=== PATIENT | male | born 1940 | race Caucasian/White ===

== ENCOUNTER 2021-06-25 08:16 | Inpatient (IN) ==
[2021-06-25] MEDS: Carbidopa/Levodop 25/100 MG TAB PO SCH ×2 (18:03→21:52)
[2021-06-25] MEDS: Carbidopa/Levodop CR 50/200 TAB.CR PO SCH (21:53)
[2021-06-26] MEDS: Cholecalciferol (VIT D3) 400 units TAB PO SCH (08:08)
[2021-06-26] MEDS: Carbidopa/Levodop 25/100 MG TAB PO SCH ×4 (08:10→20:26)
[2021-06-26] MEDS: Carbidopa/Levodop CR 50/200 TAB.CR PO SCH ×4 (08:10→20:26)
[2021-06-26 10:19] LABS: ABS Lymphocytes 0.5 10^3/ul (1.0-4.8); ABS Monocytes 0.4 10^3/ul (0-0.8); ABS Neutrophils 6.7 10^3/ul (1.5-7.7); Eosinophil % 0.5 %; Hematocrit 22 % (42-52); Hemoglobin 7.4 g/dL (14.0-18.0); Lymphocyte % 6.4 %; Mean Corpuscular HGB Conc 34 g/dL (31-36); Mean Corpuscular Hemoglobin 31 pg (27-31); Mean Corpuscular Volume 88 fL (80-94); Mean Platelet Volume 6.8 fL (7.4-10.4); Nucleated Red Blood Cells % 0.1; Platelet Count 205 10^3/uL (150-450); Red Blood Count 2.43 10^6 /uL (4.18-5.48); Red Cell Distribution Width 16 % (10-15); White Blood Count 7.7 10^3/uL (3.5-10.8)
[2021-06-26] MEDS: Enoxaparin 40 MG/0.4 ML SYR SUBCUT SCH (10:33)
[2021-06-26] MEDS: D5NS 0.9% 1000 ml BAG 1,000 ML IV SCH (17:21)
[2021-06-27] MEDS: D5NS 0.9% 1000 ml BAG 1,000 ML IV SCH (06:38)
[2021-06-27 07:59] LABS: ABS Lymphocytes 0.5 10^3/ul (1.0-4.8); ABS Monocytes 0.4 10^3/ul (0-0.8); ABS Neutrophils 6.5 10^3/ul (1.5-7.7); Eosinophil % 0.5 %; Hematocrit 22 % (42-52); Hemoglobin 7.4 g/dL (14.0-18.0); Lymphocyte % 6.8 %; Mean Corpuscular HGB Conc 34 g/dL (31-36); Mean Corpuscular Hemoglobin 30 pg (27-31); Mean Corpuscular Volume 89 fL (80-94); Mean Platelet Volume 6.7 fL (7.4-10.4); Platelet Count 224 10^3/uL (150-450); Red Blood Count 2.43 10^6 /uL (4.18-5.48); Red Cell Distribution Width 16 % (10-15); White Blood Count 7.5 10^3/uL (3.5-10.8)
[2021-06-27] MEDS: Carbidopa/Levodop CR 50/200 TAB.CR PO SCH ×4 (09:23→20:59)
[2021-06-27] MEDS: Carbidopa/Levodop 25/100 MG TAB PO SCH ×4 (09:24→20:58)
[2021-06-27] MEDS: Enoxaparin 40 MG/0.4 ML SYR SUBCUT SCH (09:25)
[2021-06-27] MEDS: Cholecalciferol (VIT D3) 400 units TAB PO SCH (09:28)
[2021-06-28 07:40] LABS: Hematocrit 23 % (42-52); Hemoglobin 7.8 g/dL (14.0-18.0); Mean Corpuscular HGB Conc 34 g/dL (31-36); Mean Corpuscular Hemoglobin 31 pg (27-31); Mean Corpuscular Volume 90 fL (80-94); Mean Platelet Volume 6.4 fL (7.4-10.4); Platelet Count 253 10^3/uL (150-450); Red Blood Count 2.54 10^6 /uL (4.18-5.48); Red Cell Distribution Width 17 % (10-15); White Blood Count 7.1 10^3/uL (3.5-10.8)
[2021-06-28 08:04] LABS: Albumin/Globulin Ratio 1.2 (1-3); Calcium 7.7 mg/dL (8.6-10.3); EGFR African American 126.5 (>60); EGFR Non-African American 104.5 (>60); Globulin 2.5 g/dL (2-4); Potassium 2.9 mmol/L (3.5-5.0); Total Bilirubin 1.5 mg/dL (0.2-1.0); Total Protein 5.5 g/dL (6.4-8.9)
[2021-06-28 08:28] LABS: ABS Eosinophils 0.1 10^3/ul (0-0.6); ABS Lymphocytes 0.6 10^3/ul (1.0-4.8); ABS Monocytes 0.3 10^3/ul (0-0.8); ABS Neutrophils 6.1 10^3/ul (1.5-7.7); Eosinophil % 0.8 %; Lymphocyte % 8.7 %
[2021-06-28] MEDS: Carbidopa/Levodop CR 50/200 TAB.CR PO SCH ×4 (08:46→21:52)
[2021-06-28] MEDS: Cholecalciferol (VIT D3) 400 units TAB PO SCH (08:46)
[2021-06-28] MEDS: Carbidopa/Levodop 25/100 MG TAB PO SCH ×4 (08:47→21:53)
[2021-06-28] MEDS: Enoxaparin 40 MG/0.4 ML SYR SUBCUT SCH (08:49)
[2021-06-29] MEDS: Carbidopa/Levodop 25/100 MG TAB PO SCH ×4 (08:44→20:13)
[2021-06-29] MEDS: Cholecalciferol (VIT D3) 400 units TAB PO SCH (08:44)
[2021-06-29] MEDS: Carbidopa/Levodop CR 50/200 TAB.CR PO SCH ×4 (08:48→20:14)
[2021-06-29] MEDS: Enoxaparin 40 MG/0.4 ML SYR SUBCUT SCH (08:57)
[2021-06-29] MEDS: Potassium Chloride LIQUID 20 MEQ/15 ML LIQUID PO SCH (21:43)
[2021-06-30 06:34] LABS: Calcium 7.8 mg/dL (8.6-10.3); EGFR African American 139.8 (>60); EGFR Non-African American 115.6 (>60); Potassium 2.9 mmol/L (3.5-5.0)
[2021-06-30] MEDS: Carbidopa/Levodop CR 50/200 TAB.CR PO SCH ×4 (08:30→21:06)
[2021-06-30] MEDS: Cholecalciferol (VIT D3) 400 units TAB PO SCH (08:32)
[2021-06-30] MEDS: Carbidopa/Levodop 25/100 MG TAB PO SCH ×4 (08:35→21:05)
[2021-06-30] MEDS: Potassium Chloride LIQUID 20 MEQ/15 ML LIQUID PO SCH ×2 (08:40→21:05)
[2021-06-30] MEDS: Enoxaparin 40 MG/0.4 ML SYR SUBCUT SCH (08:42)
[2021-06-30] MEDS: Senna TAB 8.6 mg TAB PO PRN (21:08)
[2021-07-01 06:33] LABS: Calcium 7.9 mg/dL (8.6-10.3); EGFR African American 142.3 (>60); EGFR Non-African American 117.6 (>60); Potassium 2.9 mmol/L (3.5-5.0)
[2021-07-01] MEDS: Potassium Chloride LIQUID 20 MEQ/15 ML LIQUID PO SCH ×2 (08:16→20:16)
[2021-07-01] MEDS: Cholecalciferol (VIT D3) 400 units TAB PO SCH (08:17)
[2021-07-01] MEDS: Carbidopa/Levodop 25/100 MG TAB PO SCH ×4 (08:17→20:19)
[2021-07-01] MEDS: Carbidopa/Levodop CR 50/200 TAB.CR PO SCH ×4 (08:17→20:18)
[2021-07-01] MEDS: Enoxaparin 40 MG/0.4 ML SYR SUBCUT SCH (08:18)
[2021-07-01 12:27] LABS: Magnesium 1.6 mg/dL (1.9-2.7)
[2021-07-01] MEDS: KCL 20 MEQ/100 ML IVPREMIX 20 MEQ/100 ML BAG IV SCH ×3 (12:49→20:55)
[2021-07-02 07:03] LABS: Calcium 7.8 mg/dL (8.6-10.3); EGFR African American 132.8 (>60); EGFR Non-African American 109.8 (>60); Potassium 3.6 mmol/L (3.5-5.0)
[2021-07-02] MEDS: Carbidopa/Levodop 25/100 MG TAB PO SCH ×4 (08:59→20:12)
[2021-07-02] MEDS: Carbidopa/Levodop CR 50/200 TAB.CR PO SCH ×4 (08:59→20:12)
[2021-07-02] MEDS: Cholecalciferol (VIT D3) 400 units TAB PO SCH (09:07)
[2021-07-02] MEDS: Potassium Chloride LIQUID 20 MEQ/15 ML LIQUID PO SCH ×2 (09:12→20:09)
[2021-07-02] MEDS: Enoxaparin 40 MG/0.4 ML SYR SUBCUT SCH (09:14)
[2021-07-03 07:11] LABS: EGFR African American 137.4 (>60); EGFR Non-African American 113.6 (>60); Potassium 3.8 mmol/L (3.5-5.0)
[2021-07-03] MEDS: Carbidopa/Levodop CR 50/200 TAB.CR PO SCH ×4 (08:30→21:54)
[2021-07-03] MEDS: Carbidopa/Levodop 25/100 MG TAB PO SCH ×4 (08:32→21:56)
[2021-07-03] MEDS: Cholecalciferol (VIT D3) 400 units TAB PO SCH (08:32)
[2021-07-03] MEDS: Enoxaparin 40 MG/0.4 ML SYR SUBCUT SCH (08:33)
[2021-07-03] MEDS: Potassium Chloride LIQUID 20 MEQ/15 ML LIQUID PO SCH ×2 (08:35→21:37)
[2021-07-04] MEDS: Enoxaparin 40 MG/0.4 ML SYR SUBCUT SCH (09:57)
[2021-07-04] MEDS: Cholecalciferol (VIT D3) 400 units TAB PO SCH (09:57)
[2021-07-04] MEDS: Carbidopa/Levodop 25/100 MG TAB PO SCH ×4 (09:57→20:42)
[2021-07-04] MEDS: Carbidopa/Levodop CR 50/200 TAB.CR PO SCH ×4 (09:57→20:43)
[2021-07-04] MEDS: Potassium Chloride LIQUID 20 MEQ/15 ML LIQUID PO SCH ×2 (09:57→20:41)
[2021-07-05 06:38] LABS: ABS Eosinophils 0.1 10^3/ul (0-0.6); ABS Lymphocytes 0.6 10^3/ul (1.0-4.8); ABS Monocytes 0.5 10^3/ul (0-0.8); ABS Neutrophils 5.6 10^3/ul (1.5-7.7); Eosinophil % 0.9 %; Hematocrit 26 % (42-52); Hemoglobin 8.8 g/dL (14.0-18.0); Lymphocyte % 9.1 %; Mean Corpuscular HGB Conc 34 g/dL (31-36); Mean Corpuscular Hemoglobin 32 pg (27-31); Mean Corpuscular Volume 94 fL (80-94); Mean Platelet Volume 6.4 fL (7.4-10.4); Nucleated Red Blood Cells % 0.1; Platelet Count 360 10^3/uL (150-450); Red Blood Count 2.79 10^6 /uL (4.18-5.48); Red Cell Distribution Width 21 % (10-15); White Blood Count 6.8 10^3/uL (3.5-10.8)
[2021-07-05 06:50] LABS: Albumin 3.2 g/dL (3.2-5.2); Albumin/Globulin Ratio 1.1 (1-3); Calcium 8.3 mg/dL (8.6-10.3); EGFR African American 137.4 (>60); EGFR Non-African American 113.6 (>60); Globulin 2.8 g/dL (2-4)
[2021-07-05] MEDS: Carbidopa/Levodop CR 50/200 TAB.CR PO SCH ×4 (08:50→20:55)
[2021-07-05] MEDS: Carbidopa/Levodop 25/100 MG TAB PO SCH ×4 (08:50→20:54)
[2021-07-05] MEDS: Cholecalciferol (VIT D3) 400 units TAB PO SCH (08:51)
[2021-07-05] MEDS: Enoxaparin 40 MG/0.4 ML SYR SUBCUT SCH (08:52)
[2021-07-05] MEDS: Potassium Chloride LIQUID 20 MEQ/15 ML LIQUID PO SCH (08:57)
[2021-07-06] MEDS: Cholecalciferol (VIT D3) 400 units TAB PO SCH (08:38)
[2021-07-06] MEDS: Carbidopa/Levodop CR 50/200 TAB.CR PO SCH ×4 (08:39→20:17)
[2021-07-06] MEDS: Carbidopa/Levodop 25/100 MG TAB PO SCH ×4 (08:39→20:17)
[2021-07-06] MEDS: Enoxaparin 40 MG/0.4 ML SYR SUBCUT SCH (08:43)
[2021-07-07] MEDS: Cholecalciferol (VIT D3) 400 units TAB PO SCH (07:33)
[2021-07-07] MEDS: Carbidopa/Levodop CR 50/200 TAB.CR PO SCH ×4 (07:35→20:34)
[2021-07-07] MEDS: Carbidopa/Levodop 25/100 MG TAB PO SCH ×4 (07:35→20:34)
[2021-07-07] MEDS: Enoxaparin 40 MG/0.4 ML SYR SUBCUT SCH (07:37)
[2021-07-07] MEDS: guaiFENesin 100 mg/5 ml LIQ unit dose cup PO PRN (17:04)
[2021-07-08] MEDS: guaiFENesin 100 mg/5 ml LIQ unit dose cup PO PRN ×2 (04:16→21:41)
[2021-07-08] MEDS: Carbidopa/Levodop 25/100 MG TAB PO SCH ×4 (08:09→21:39)
[2021-07-08] MEDS: Cholecalciferol (VIT D3) 400 units TAB PO SCH (08:09)
[2021-07-08] MEDS: Carbidopa/Levodop CR 50/200 TAB.CR PO SCH ×4 (08:14→21:41)
[2021-07-08] MEDS: Enoxaparin 40 MG/0.4 ML SYR SUBCUT SCH (08:15)
[2021-07-08] MEDS: Magnesium Hydroxide LIQ 30 ML UDC PO PRN (18:25)
[2021-07-09] MEDS: guaiFENesin 100 mg/5 ml LIQ unit dose cup PO PRN ×2 (04:43→17:20)
[2021-07-09] MEDS: Enoxaparin 40 MG/0.4 ML SYR SUBCUT SCH (08:33)
[2021-07-09] MEDS: Carbidopa/Levodop CR 50/200 TAB.CR PO SCH ×4 (08:34→21:12)
[2021-07-09] MEDS: Cholecalciferol (VIT D3) 400 units TAB PO SCH (08:39)
[2021-07-09] MEDS: Carbidopa/Levodop 25/100 MG TAB PO SCH ×4 (08:40→21:13)
[2021-07-09] MEDS: Magnesium Hydroxide LIQ 30 ML UDC PO PRN (17:24)
[2021-07-09] MEDS: Senna TAB 8.6 mg TAB PO PRN (17:27)
[2021-07-10] MEDS: guaiFENesin 100 mg/5 ml LIQ unit dose cup PO PRN ×2 (04:37→10:10)
[2021-07-10] MEDS: Magnesium Hydroxide LIQ 30 ML UDC PO PRN (08:34)
[2021-07-10] MEDS: Carbidopa/Levodop CR 50/200 TAB.CR PO SCH ×4 (08:35→20:29)
[2021-07-10] MEDS: Carbidopa/Levodop 25/100 MG TAB PO SCH ×4 (08:35→20:30)
[2021-07-10] MEDS: Cholecalciferol (VIT D3) 400 units TAB PO SCH (08:35)
[2021-07-10] MEDS: Enoxaparin 40 MG/0.4 ML SYR SUBCUT SCH (08:37)
[2021-07-11] MEDS: guaiFENesin 100 mg/5 ml LIQ unit dose cup PO PRN ×3 (00:14→21:23)
[2021-07-11] MEDS: Cholecalciferol (VIT D3) 400 units TAB PO SCH (08:59)
[2021-07-11] MEDS: Enoxaparin 40 MG/0.4 ML SYR SUBCUT SCH (08:59)
[2021-07-11] MEDS: Carbidopa/Levodop 25/100 MG TAB PO SCH ×4 (09:01→21:23)
[2021-07-11] MEDS: Carbidopa/Levodop CR 50/200 TAB.CR PO SCH ×4 (09:01→21:23)
[2021-07-12 07:58] LABS: ABS Eosinophils 0.1 10^3/ul (0-0.6); ABS Monocytes 0.5 10^3/ul (0-0.8); ABS Neutrophils 4.6 10^3/ul (1.5-7.7); Eosinophil % 0.8 %; Hematocrit 29 % (42-52); Hemoglobin 9.8 g/dL (14.0-18.0); Lymphocyte % 15.5 %; Mean Corpuscular HGB Conc 34 g/dL (31-36); Mean Corpuscular Hemoglobin 32 pg (27-31); Mean Corpuscular Volume 94 fL (80-94); Mean Platelet Volume 6.5 fL (7.4-10.4); Platelet Count 281 10^3/uL (150-450); Red Blood Count 3.04 10^6 /uL (4.18-5.48); Red Cell Distribution Width 19 % (10-15); White Blood Count 6.2 10^3/uL (3.5-10.8)
[2021-07-12 08:15] LABS: Albumin 3.5 g/dL (3.2-5.2); Albumin/Globulin Ratio 1.1 (1-3); Calcium 8.6 mg/dL (8.6-10.3); EGFR Non-African American 92.5 (>60); Globulin 3.1 g/dL (2-4); Magnesium 2.2 mg/dL (1.9-2.7); Potassium 4.1 mmol/L (3.5-5.0); Total Bilirubin 0.7 mg/dL (0.2-1.0); Total Protein 6.6 g/dL (6.4-8.9)
[2021-07-12] MEDS: Cholecalciferol (VIT D3) 400 units TAB PO SCH (09:28)
[2021-07-12] MEDS: Carbidopa/Levodop 25/100 MG TAB PO SCH ×4 (09:29→20:42)
[2021-07-12] MEDS: Carbidopa/Levodop CR 50/200 TAB.CR PO SCH ×4 (09:32→20:31)
[2021-07-12] MEDS: Enoxaparin 40 MG/0.4 ML SYR SUBCUT SCH (09:36)
[2021-07-12] MEDS: Senna TAB 8.6 mg TAB PO PRN (17:22)
[2021-07-12] MEDS: guaiFENesin 100 mg/5 ml LIQ unit dose cup PO PRN (17:27)
[2021-07-12] MEDS: Magnesium Hydroxide LIQ 30 ML UDC PO PRN (17:27)
[2021-07-13] MEDS: guaiFENesin 100 mg/5 ml LIQ unit dose cup PO PRN (05:20)
[2021-07-13] MEDS: Cholecalciferol (VIT D3) 400 units TAB PO SCH (08:24)
[2021-07-13] MEDS: Carbidopa/Levodop 25/100 MG TAB PO SCH ×4 (08:25→21:24)
[2021-07-13] MEDS: Carbidopa/Levodop CR 50/200 TAB.CR PO SCH ×4 (08:26→21:23)
[2021-07-13] MEDS: Enoxaparin 40 MG/0.4 ML SYR SUBCUT SCH (08:38)
[2021-07-13] MEDS: Senna TAB 8.6 mg TAB PO PRN (17:06)
[2021-07-13] MEDS: Magnesium Hydroxide LIQ 30 ML UDC PO PRN (17:06)
[2021-07-14] MEDS: Cholecalciferol (VIT D3) 400 units TAB PO SCH (07:31)
[2021-07-14] MEDS: Carbidopa/Levodop 25/100 MG TAB PO SCH ×4 (07:32→21:26)
[2021-07-14] MEDS: Carbidopa/Levodop CR 50/200 TAB.CR PO SCH ×4 (07:33→21:24)
[2021-07-14] MEDS: Enoxaparin 40 MG/0.4 ML SYR SUBCUT SCH (07:34)
[2021-07-14] MEDS: Senna TAB 8.6 mg TAB PO PRN (17:50)
[2021-07-14] MEDS: guaiFENesin 100 mg/5 ml LIQ unit dose cup PO PRN (17:53)
[2021-07-14] MEDS: Magnesium Hydroxide LIQ 30 ML UDC PO PRN (17:54)
[2021-07-15] MEDS: Carbidopa/Levodop CR 50/200 TAB.CR PO SCH ×4 (08:11→20:50)
[2021-07-15] MEDS: Carbidopa/Levodop 25/100 MG TAB PO SCH ×4 (08:12→20:49)
[2021-07-15] MEDS: Cholecalciferol (VIT D3) 400 units TAB PO SCH (08:13)
[2021-07-15] MEDS: Enoxaparin 40 MG/0.4 ML SYR SUBCUT SCH (08:16)
[2021-07-15] MEDS: guaiFENesin 100 mg/5 ml LIQ unit dose cup PO PRN (18:03)
[2021-07-15] MEDS: Magnesium Hydroxide LIQ 30 ML UDC PO PRN (18:04)
[2021-07-15] MEDS: Senna TAB 8.6 mg TAB PO PRN (18:07)
[2021-07-16 06:29] VITALS: BP 123/75
[2021-07-16] MEDS: Carbidopa/Levodop CR 50/200 TAB.CR PO SCH (09:48)
[2021-07-16] MEDS: Cholecalciferol (VIT D3) 400 units TAB PO SCH (09:51)
[2021-07-16] MEDS: Carbidopa/Levodop 25/100 MG TAB PO SCH (09:51)
[2021-07-16] MEDS: guaiFENesin 100 mg/5 ml LIQ unit dose cup PO PRN (09:55)
[2021-07-16] MEDS: Enoxaparin 40 MG/0.4 ML SYR SUBCUT SCH (12:13)
== END 2021-07-16 13:08 | disposition home or self-care (01) | DRG 560 ==
LOC: PMRU 15:10
PROVIDERS: ADMIT Physical Medicine & Rehabilitation; ATTEND Physical Medicine & Rehabilitation